=== PATIENT | male | born 1955 | race American Indian/Alaskan Native ===

== ENCOUNTER 2018-06-02 17:26 | Inpatient (IN) | payer OTHER ==
--- NOTE | 2018-06-02 19:19 | C.PDOC ---
History Of Present Illness 62 year old male presents to the ED requesting detox for alcohol abuse. Patient reports his last drink was today at noon. Patient denies SI/HI, hallucinations, injury, fall, trauma. Time Seen by Provider: 06/02/18 19:18 Chief Complaint (Nursing): Substance Abuse History Per: Patient History/Exam Limitations: intoxication Onset/Duration Of Symptoms: Hrs Current Symptoms Are (Timing): Still Present Suicide/Self Injury Attempted (Context): None Modifying Factor(s): Alcohol Associated Symptoms: denies: Depression, Suicidal Thoughts, Suicidal Plan Recent travel outside of the [place]: No Additional History Per: Patient Past Medical History Reviewed: Historical Data, Nursing Documentation, Vital Signs Vital Signs: Last Vital Signs Temp 98.4 F 06/02/18 17:50 Pulse 76 06/02/18 17:50 Resp 18 06/02/18 17:50 BP 134/83 06/02/18 17:50 Pulse Ox 99 06/02/18 17:50 - Medical History PMH: Anxiety, Depression Surgical History: No Surg Hx Family History: States: Unknown Family Hx - Social History Hx Alcohol Use: Yes Hx Substance Use: No - Immunization History Hx Tetanus Toxoid Vaccination: No Hx Influenza Vaccination: No Hx Pneumococcal Vaccination: No Review Of Systems Constitutional: Negative for: Fever, Chills Eyes: Negative for: Vision Change Cardiovascular: Negative for: Chest Pain Respiratory: Negative for: Shortness of Breath Gastrointestinal: Negative for: Nausea, Vomiting, Abdominal Pain Skin: Negative for: Rash Psych: Negative for: Depression, Suicidal ideation Physical Exam - Physical Exam Appears: Non-toxic, No Acute Distress Skin: Warm, Dry Head: Normacephalic Eye(s): bilateral: Normal Inspection Neck: Supple Chest: Symmetrical Cardiovascular: Rhythm Regular Respiratory: No Rales, No Rhonchi, No Wheezing Gastrointestinal/Abdominal: Soft, No Tenderness Extremity: Bilateral: Atraumatic, Normal Color And Temperature, Normal ROM Neurological/Psych: Oriented x3, Normal Speech, Normal Cognition Gait: Steady ED Course And Treatment - Laboratory Results Result Diagrams: 06/02/18 20:29 06/02/18 20:29 O2 Sat by Pulse Oximetry: 99 (ON RA) Pulse Ox Interpretation: Normal Progress Note: Plan;. - Labs. - UA. - Crisis eval Disposition Discussed With : Christie Nieto Comment: accepted the pt on his service and took over the care at 9:55 PM Doctor Will See Patient In The: Hospital Counseled Patient/Family Regarding: Studies Performed, Diagnosis - Disposition Disposition: HOSPITALIZED Disposition Time: 19:19 Condition: FAIR Forms: [facility] (Italian) - POA Present On Arrival: None - Clinical Impression Clinical Impression: Alcohol use disorder - Scribe Statement The provider has reviewed the documentation as recorded by the Scribe Garcia Silverio All medical record entries made by the Scribe were at my direction and personally dictated by me. I have reviewed the chart and agree that the record accurately reflects my personal performance of the history, physical exam, medical decision making, and the department course for this patient. I have also personally directed, reviewed, and agree with the discharge instructions and disposition. Decision To Admit - Pt Status Changed To: Hospital Disposition Of: Inpatient - Admit Certification Admit to Inpatient:: After my assessment, the patient will require hospitali zation for at least two midnights. This is because of the severity of symptoms shown, intensity of services needed, and/or the medical risk in this patient being treated as an outpatient. - InPatient: Physician Admission Certification: I certify that this patient requires 2 or more midnights of care for the following reason:: After my assessment, the patient will require hospitalization for at least two midnights. This is because of the severity of symptoms shown, intensity of services needed, and/or the medical risk in this patient being treated as an outpatient. - . Bed Request Type: Detox Admitting Physician: Christie Nieto Patient Diagnosis: Alcohol use disorder
[2018-06-02 20:34] LABS: BASO % 0.3 % (0.0-2.0); EOS % 0.6 % (0.0-4.0); HEMOGLOBIN 10.8 g/dL (12.0-18.0); LYMPH # 1.3 K/uL (1.0-4.3); LYMPH % 45.1 % (20.0-40.0); MEAN CELL VOLUME 109.7 fL (80.0-94.0); MEAN CORPUSCULAR HEMOGLOBIN 37.1 pg (27.0-31.0); MEAN CORPUSCULAR HGB CONC 33.8 g/dL (33.0-37.0); MEAN PLATELET VOLUME 7.8 fL (7.2-11.7); MONO # 0.3 K/uL (0.0-0.8); MONO % 10.1 % (0.0-10.0); NEUT # 1.3 K/uL (1.8-7.0); NEUT % 43.9 % (50.0-75.0); NRBC % 0.2 % (0.0-2.0); RBC 2.91 Mil/uL (4.40-5.90); RED CELL DISTRIBUTION WIDTH 14.1 % (11.5-14.5); WHITE BLOOD COUNT 2.9 K/uL (4.8-10.8)
[2018-06-02 20:48] LABS: ALB/GLOB RATIO 1.2 (1.0-2.1); ALBUMIN 3.8 g/dL (3.5-5.0); ALT/SGPT 63 U/L (21-72); AST/SGOT 110 U/L (17-59); BLOOD UREA NITROGEN 9 mg/dL (9-20); CALCIUM 9.3 mg/dl (8.6-10.4); GFR NON-AFRICAN AMERICAN > 60; SQUAMOUS EPITHIAL < 1 /hpf (0-5); URINE BACTERIA RARE (<OCC); URINE BILIRUBIN NEGATIVE (NEGATIVE); URINE BLOOD 2+ (NEGATIVE); URINE CLARITY Clear (Clear); URINE COLOR Straw (YELLOW); URINE GLUCOSE (UA) NORMAL (Normal); URINE LEUKOCYTE ESTERASE NEG Leu/uL (Negative); URINE PROTEIN NEGATIVE (NEGATIVE); URINE UROBILINOGEN NORMAL mg/dL (0.2-1.0)
[2018-06-02 20:49] LABS: BARBITURATES, UR NEGATIVE (NEGATIVE); BENZODIAZEPINES, UR NEGATIVE (NEGATIVE); OPIATES, UR NEGATIVE (NEGATIVE); PHENCYCLIDINE, UR NEGATIVE (NEGATIVE)
--- NOTE | 2018-06-03 00:42 | PCM.BM ---
<Francis Floyd - Last Filed: 06/03/18 00:40> Treatment Plan Problems - Problems identified on initial assessmt Anxiety r/t Substance use Date Initiated: 06/03/18 Time Initiated: 00:40 Assessment reference: NA Status: Active Defensive Coping Date Initiated: 06/03/18 Time Initiated: 00:41 Assessment reference: NA Status: Active Knowledge Deficit: Alcohol use Date Initiated: 06/03/18 Time Initiated: 00:42 Assessment reference: NA Status: Active Treatment assets and liabiliti Patient Assests: adapts well, cooperative, ADL independent, cognitively intact, good interpersonal skills Patient Liabilities: substance abuse - Milieu Protocol Maintain good personal hygiene: daily Encourage regular showers, daily Remind patient to perform daily oral care, daily Assist patient to perform ADL's Maintain personal safety: every shift Educate patient to report safety concerns to staff, every shift Monitor environment for contraband/sharps Medication safety: Monitor for expected outcome, potential side effects: every shift, Assess barriers to learning: every shift, Assess readiness for medication education: every shift <Ilana Shaffer - Last Filed: 06/05/18 15:57> Family Contact Family involvement: Famliy/SO not involved - Goals for Treatment Patient goals for treatment: Complete detox and resume MAT program. Discharge/Continuing Care - Education Needs Education Needs: Patient Medication, Patient Diagnosis/Disease Process, Patient Coping Skills, Patient Anger Management skills, Patient Placement options, Patient Community resources - Discharge Discharge Criteria: No longer exhibiting s/s of withdrawal, Reduction of target symptoms Discharge to:: Home - Treatment Team Participation Patient/Family/SO Statement: 06/05/18 15:52 "I wanna go back to my methadone clinic" Discussed with Family/SO: No Was Patient/Family/SO present at Treatment Team Meeting: Yes
[2018-06-03] MEDS: Multiple Vitamins Tab PO SCH (09:25)
[2018-06-03] MEDS: Methadone 40 mg Tab PO SCH (09:25)
--- NOTE | 2018-06-03 10:31 | PCM.PSYCH ---
Initial Psychiatric Evaluation - Initial Psychiatric Evaluation Type of Admission: Voluntary Legal Status: Capacity Chief Complaint (in patient's own words): "I feel sick" History of Present Illness and Precipitating Events: Patient is a 62 y/o AA male, currently single with three children all adult age. He lives in an apartment alone. Currently he is unemployed on disability. Patient is coming to detox for alcohol, his last drink was yesterday. Currently he drinks 3-4 oz of malt liquor per day. He has been drinking his entire life, but feels that his drinking has been getting worse since last year. He has previously been to detox facilities twice in the past for heroin use. He currently receives methadone maintenance (125 mg - confirmed) for past opioid use. He has a past history of heroin use, of many years he has been on methadone for 4 years. He reports occasionally using marijuana. Denies other drugs He gets no counseling at his program b/c he doesn't like his counselor. Currently, the pt has some withdrawal sxs and CIWA is increasing. We will start treatment as the pt is hinting he doesn't want to experience wdw He may AMA. Psych Hx Depression. He has been hospitalized for depression in the past at [facility]. Still depressed but not suicidal. Fam Psych HX Denies Medications Topomax, Lexapro, Allopurinol PMHx Gout, hernia Social hx Has been in an out of alf in past 19 years Trauma Denies Current Medications: Active Medications Generic Name Dose Route Start Last Admin Trade Name Freq PRN Reason Stop Dose Admin Chlordiazepoxide 25 mg 06/03/18 10:00 06/03/18 09:25 Librium PO 06/08/18 09:59 25 mg Q6H DONALD Administration Taper Chlordiazepoxide 25 mg 06/03/18 08:47 Librium PO Q4H PRN Alcohol Withdrawal Clonidine HCl 0.1 mg 06/02/18 23:27 Catapres PO Q6 PRN Symptoms of alcohol withdrawl Folic Acid 1 mg 06/03/18 10:00 06/03/18 09:25 Folic Acid PO 1 mg DAILY DONALD Administration Hydroxyzine HCl 25 mg 06/02/18 23:16 06/02/18 23:35 Atarax PO 25 mg Q6 PRN Administration Anxiety Ibuprofen 600 mg 06/02/18 23:29 Motrin Tab PO Q6 PRN Pain, moderate (4-7) Methadone HCl 120 mg 06/03/18 10:00 06/03/18 09:25 Methadose PO 120 mg DAILY DONALD Administration Methadone HCl 5 mg 06/03/18 10:00 06/03/18 09:25 Methadone PO 5 mg DAILY DONALD Administration Multivitamins 1 tab 06/03/18 10:00 06/03/18 09:25 Hexavitamin PO 1 tab DAILY DONALD Administration Thiamine HCl 100 mg 06/03/18 10:00 06/03/18 09:25 Vitamin B1 Tab PO 100 mg DAILY DONALD Administration Trazodone HCl 50 mg 06/02/18 23:17 06/02/18 23:35 Desyrel PO 50 mg HS PRN Administration Insomnia Past Psychiatric History - Past Psychiatric History Previous Treatment History: Intensive Outpatient Pertinent Medical Hx (Current Medical&Sleep Prob, Allergies): Allergies Allergy/AdvReac Type Severity Reaction Status Date / Time No Known Allergies Allergy Unverified 06/02/18 17:53 Allopurinol [Zyloprim] 2 tab PO DAILY 06/02/18 Cholecalciferol (Vitamin D3) [D3-5000 90 mg-5000 Iu] 1 tab PO DAILY 06/02/18 Escitalopram [Lexapro] 10 mg PO DAILY 06/02/18 Multivitamin [Gummi Bear Multivitamin] 1 each PO DAILY 06/02/18 Topiramate 25 mg PO BID 06/02/18 Review of Systems - Psychiatric Psychiatric: Abnormal Sleep Pattern, Anhedonia, Anxiety, Change in Appetite, Depression, Difficulty Concentrating, Irritability. absent: Hallucinations, Homicidal Ideation, Paranoia, Suicidal Ideation Mental Status Examination - Personal Presentation Personal Presentation: Looks stated age - Affect Affect: Constricted - Motor Activity Motor Activity: Calm - Reliability in Providing Information Reliability in Providing Information: Good - Speech Speech: Organized - Mood Mood: Depressed, Anxious - Formal Thought Process Formal Thought Process: No Impairment - Cognitive Functions Orientation: Person, Place, Situation, Time Sensorium: Alert Attention/Concentration: Attentive Estimate of Intelligence: Average Judgement: Intact, as evidence by: Insight regarding need for hospitalization Memory: Recent intact, as evidence by: Ability to recall events of the day, Remote intact, as evidenced by: Abilit to recall sig. life events - Risk Risk: Withdrawal, Diminished functioning - Strength & Assets Inventory Strength & Assets Inventory: Cooperative - Limitations Limitations: Other DSM 5 DX - DSM 5 DSM 5 Diagnosis: Alcohol withdrawal Alcohol use d/o - severe Opioid use d/o - severe, on maintenance Major depression, severe Gout - Recommended/Plan of Treatment Treatment Recommendations and Plan of Treatment: Taper with librium Continue lexapro Gabapentin for augmentation if needed As needed medications All risks, benefits and alternatives of the meds discussed, and the pt agreed and understood. Attend groups and activities Supportive therapy and psychoeducation [place] for abstinence CBT for relapse prevention Encourage MAT Refer to rehab or IOP, and self-help groups Teach healthy lifestyle methods, i.e. diet, exercise, meditation Smoking cessation with [facility] Nicotine patch if needed 34 min
[2018-06-04] MEDS: Multiple Vitamins Tab PO SCH (10:12)
[2018-06-04] MEDS: Methadone 40 mg Tab PO SCH (10:13)
--- NOTE | 2018-06-04 14:14 | PCM.PYCHPN ---
Psychiatric Progress Note - Psychiatric Progress Note Patient seen today, length of contact: 18 min Patient Chief Complaint: "I don't feel well" Problems Identified/Issues Discussed: The pt is seen, chart reviewed, case discussed with staff. The pt is compliant with medications and reports no side-effects. Symptoms are improving but needs more time to stabilize. Pt attends groups and activities. Support given, psycho-education provided. After care discussed. Medication Change: Yes (detox changes daily) Medical Record Reviewed: Yes Mental Status Examination - Cognitive Function Orientation: Person, Place, Situation, Time Memory: Intact Attention: WNL Concentration: Poor Association: WNL Fund of Knowledge: WNL - Mood Mood: Depressed, Anxious - Affect Affect: Constricted - Speech Speech: Appropriate - Formal Thought Process Formal Thought Process: No Impairment - Suicidal Ideation Suicidal Ideation: No - Homicidal Ideation Homicidal Ideation: No Goal/Treatment Plan - Goal/Treatment Plan Need for Continued Stay: Discharge may exacerbated symptoms, Severe functional impairment Progress Toward Problem(s) and Goals/Treatment Plan: Taper with librium Continue lexapro Gabapentin for augmentation if needed As needed medications All risks, benefits and alternatives of the meds discussed, and the pt agreed and understood. Attend groups and activities Supportive therapy and psychoeducation [place] for abstinence CBT for relapse prevention Encourage MAT Refer to rehab or IOP, and self-help groups Teach healthy lifestyle methods, i.e. diet, exercise, meditation Smoking cessation with [place] Nicotine patch if needed
[2018-06-04] MEDS: IMATINIB MESYLATE 100 MG PO SCH ×3 (14:23→16:04)
[2018-06-04] MEDS ORDERED: IMATINIB MESYLATE 100 MG PO SCH (14:31)
[2018-06-05] MEDS: Multiple Vitamins Tab PO SCH (09:55)
[2018-06-05] MEDS: Methadone 40 mg Tab PO SCH (09:55)
[2018-06-05] MEDS: IMATINIB MESYLATE 100 MG PO SCH ×2 (13:31→14:37)
[2018-06-05] MEDS ORDERED: Patient's Own Medication - Tablet/Capusle PO SCH (14:00)
--- NOTE | 2018-06-05 14:45 | PCM.PYCHPN ---
Psychiatric Progress Note - Psychiatric Progress Note Patient seen today, length of contact: 16 min Patient Chief Complaint: "I am a little better" Problems Identified/Issues Discussed: The pt is seen, chart reviewed, case is discussed with staff. Support and psychoeducation given, CBT and [place] used briefly The pt is improving slowly but needs more time due to severity of symptoms and relapse risk. No SEs from medications, risks discussed. After care discussed Medication Change: Yes (detox changes daily) Medical Record Reviewed: Yes Mental Status Examination - Cognitive Function Orientation: Person, Place, Situation, Time Memory: Intact Attention: WNL Concentration: Poor Association: WNL Fund of Knowledge: WNL - Mood Mood: Depressed, Anxious - Affect Affect: Constricted - Speech Speech: Appropriate - Formal Thought Process Formal Thought Process: No Impairment - Suicidal Ideation Suicidal Ideation: No - Homicidal Ideation Homicidal Ideation: No Goal/Treatment Plan - Goal/Treatment Plan Need for Continued Stay: Discharge may exacerbated symptoms, Severe functional impairment Progress Toward Problem(s) and Goals/Treatment Plan: Taper with librium Continue lexapro Gabapentin for augmentation if needed As needed medications All risks, benefits and alternatives of the meds discussed, and the pt agreed and understood. Attend groups and activities Supportive therapy and psychoeducation [place] for abstinence CBT for relapse prevention Encourage MAT Refer to rehab or IOP, and self-help groups Teach healthy lifestyle methods, i.e. diet, exercise, meditation Smoking cessation with [place] Nicotine patch if needed
[2018-06-06] MEDS: Methadone 40 mg Tab PO SCH (10:35)
[2018-06-06] MEDS: Multiple Vitamins Tab PO SCH (10:35)
[2018-06-06] MEDS: IMATINIB MESYLATE 100 MG PO SCH (13:31)
--- NOTE | 2018-06-06 23:11 | PCM.PYCHPN ---
Psychiatric Progress Note - Psychiatric Progress Note Patient seen today, length of contact: 15 minutes Patient Chief Complaint: I am feeling better, just has some anxiety. Problems Identified/Issues Discussed: Patient seen, chart reviewed, case discussed with the staff. Issues related to illness and treatment were discussed with the patient and staff. Tolerating treatment very well. Reported compliant with treatment with no adverse effects. Patient reported feeling better. Mood reported as anxious. Affect appropriate. Aftercare discussed with the patient. Patient denied any delusions, auditory or visual hallucinations, suicidal ideations or homicidal ideations at the time of evaluation. Medical Problems: Gout Diagnostic Results: Reviewed DSM 5 Symptoms Update: Some improvement with Treatment Medication Change: No Medical Record Reviewed: Yes Mental Status Examination - Cognitive Function Orientation: Person, Place, Situation, Time Memory: Intact Attention: WNL Concentration: WNL Association: [facility] Fund of Knowledge: [facility] Decription of patient's judgement and insights: Fair - Mood Mood: Anxious - Affect Affect: Other (Appropriate) - Speech Speech: Appropriate - Formal Thought Process Formal Thought Process: No Impairment Psychotic Thoughts and Behaviors: None - Suicidal Ideation Suicidal Ideation: No - Homicidal Ideation Homicidal Ideation: No Goal/Treatment Plan - Goal/Treatment Plan Need for Continued Stay: Remain at risks for inpatient hospitalization, Discharge may exacerbated symptoms, Severe functional impairment Progress Toward Problem(s) and Goals/Treatment Plan: Patient education. Supportive therapy. CBT for relapse prevention. [place] for abstinence. Continue treatment as before. Estimated Date of D/C: 06/07/18 - Smoking Cessation Smoking Cessation Initiated: Yes
[2018-06-07] MEDS: Multiple Vitamins Tab PO SCH (09:29)
[2018-06-07] MEDS: Methadone 40 mg Tab PO SCH (09:29)
[2018-06-07 09:34] VITALS: PULSE 77; RESP 18; TEMP 98
[2018-06-07 09:35] VITALS: BP 115/72; O2SAT 96
--- NOTE | 2018-06-07 21:30 | PCM.PYCHDC ---
Mental Status Examination - Mental Status Examination Orientation: Person, Place, Situation, Time Memory: Intact Mood: Neutral Affect: Other (Appropriate) Speech: Appropriate Attention: WNL Concentration: WNL Association: WNL Fund of Knowledge: WNL Formal Thought Process: No Impairment Description of patient's judgement and insight: Fair Psychotic Thoughts and Behaviors: None Suicidal Ideation: No Current Homicidal Ideation?: No Discharge Summary - Discharge Note Reason for Hospitalization: Alcohol withdrawal Alcohol use d/o - severe Opioid use d/o - severe, on maintenance Major depression, severe Gout Laboratory Data: Reviewed Consultations:: List each consultation separately and include: 1. Reason for request. 2. Findings. 3. Follow-up Summary of Hospital Course include:: 1. Description of specific treatment plan utilized for patients during their course of treatmen. 2. Summarize the time- course for resolution of acute symptoms and/or regressed behaviors. 3. Describe issues identified and worked on during hospitalization. 4. Describe medication utilized. 5. Describe medical problems identified and treated. 6. Reassessment of suicide risk Summary of Hospital Course: Patient is a 62 y/o AA male, currently single with three children all adult age. He lives in an apartment alone. Currently he is unemployed on disability. Patient is coming to detox for alcohol, his last drink was yesterday. Currently he drinks 3-4 oz of malt liquor per day. He has been drinking his entire life, but feels that his drinking has been getting worse since last year. He has previously been to detox facilities twice in the past for heroin use. He currently receives methadone maintenance (125 mg - confirmed) for past opioid use. He has a past history of heroin use, of many years he has been on met hadone for 4 years. He reports occasionally using marijuana. Denies other drugs He gets no counseling at his program b/c he doesn't like his counselor. Currently, the pt has some withdrawal sxs and CIWA is increasing. We will start treatment as the pt is hinting he doesn't want to experience wdw He may AMA. Psych Hx Depression. He has been hospitalized for depression in the past at [facility]. Still depressed but not suicidal. Fam Psych HX Denies Medications Topomax, Lexapro, Allopurinol PMHx Gout, hernia Social hx Has been in a During his stay in the hospital patient was treated with Librium taper for alcohol withdrawal symptoms. He was also continued on methadone when she was getting from methadone maintenance treatment program. He was also getting other PRN medications and medication for depression. Patient was also attending groups and other activities on the unit. With above treatment patient started feeling better, had no withdrawal symptoms. Today patient was stable and was ready for discharge from the hospital. At the time of evaluation and discharge, patient was awake, alert and oriented x3, had no delusions, no auditory or visual hallucinations, no suicidal ideations or homicidal ideations patient was discharged in a stable condition. - Final Diagnosis (DSM 5) Condition upon Discharge: FAIR Disposition: HOME/ ROUTINE Follow-up Treatment Plan: Patient will go to [facility] for [facility]-up care after discharge from the hospital. Prescriptions/Medication Reconciliation: Escitalopram [Lexapro] 10 mg PO DAILY #30 tab Topiramate [Topamax] 50 mg PO BID #60 tab traZODone [Desyrel] 100 mg PO HS PRN #30 tab PRN Reason: Insomnia - Smoking Cessation Smoking Cessation Medication prescribed: No - Antipsychotic Medications Pt discharged on 2 or more routine antipsychotic medications: No
== END 2018-06-07 11:00 | disposition home or self-care (01) | DRG 897 ==
LOC: C.ER 17:26 → C.7D 21:52
PROVIDERS: ADMIT Psychiatry & Neurology Psychiatry; ATTEND Psychiatry & Neurology Psychiatry
PROC: GZHZZZZ Group Psychotherapy (ICD-10-PCS; principal; 2018-06-02)
PROC: GZ56ZZZ Individual Psychotherapy, Supportive (ICD-10-PCS; 2018-06-02)
DX: F10.230 Alcohol dependence with withdrawal, uncomplicated (principal); F32.2 Major depressive disorder, single episode, severe without psychotic features; F11.29 Opioid dependence with unspecified opioid-induced disorder; Y90.6 Blood alcohol level of 120-199 mg/100 ml; F12.90 Cannabis use, unspecified, uncomplicated; F41.9 Anxiety disorder, unspecified; M10.9 Gout, unspecified